=== PATIENT | male | born 1960 | race Caucasian/White ===

== ENCOUNTER → 2020-02-27 | Outpatient (CLI) | payer OTHER ==
[2017-05-11 11:00] VITALS: BP 139/93
[~2020-02-27] MED LIST: OMEP20TA63 PO; PRAV40TA2 PO; PROP40TA PO; TRAM50TA PO
--- NOTE | 2020-02-27 13:46 | RAD ---
Examination: Right Lower Extremity Venous Doppler Ultrasound History: Right lower extent pain, swelling Comparison: None Procedure: Mckeon scale, color flow 2D and spectal waveform analysis images are obtained with and without compression in the area of the common femoral vein, superficial femoral vein - femoral vein junction, main femoral vein (superficial femoral vein) and popliteal vein. Veins of the proximal calf are also imaged. Findings: There is normal duplex flow, color flow and compressibility of all visualized vein segments. No evidence of deep venous thrombus is present. Impression: No evidence of DVT in the right lower extremity venous system. Electronically signed by: Nelson Corbin MD (02/27/2020 1:43 PM) [id number]
== END | disposition home or self-care (01) ==
LOC: US 13:00
PROVIDERS: ATTEND Nurse Practitioner Family
DX: R22.41 Localized swelling, mass and lump, right lower limb (principal)
CPT/HCPCS: 93971

== ENCOUNTER → 2021-01-01 | Outpatient (CLI) | payer OTHER ==
[2017-05-11 11:00] VITALS: BP 139/93
[~2021-01-01] MED LIST changes: +ACET325T9 PO; +CARV40CP5 PO; +IBUP-1581 PO; +MELO7.5T29 PO; +PREG100C PO; +TAMS0.4C97 PO
--- NOTE | 2021-01-01 15:43 | PDOC1 ---
INITIAL PAIN CONSULT DATE OF SERVICE: DOS: DATE: 01/01/21 TIME: 15:34 CHIEF COMPLAINT: Chief Complaint: Low back and left greater than right lower extremity pain HISTORY OF PRESENT ILLNESS: 60-year-old male presents history of pain low back bilateral lower extremities left greater than right for about 6 months not the result of any specific injury or accident that he is aware of is been getting worse over time as patient is very physical job. Patient reports that the pain is in the low back across the low back bilaterally rating to the lower extremities left greater than right posterior gluteus posterior lateral thigh anterior thigh medial thigh medial lower leg and into the calves as well as the feet patient reports is constant times intermittent intensity but was present changes during the day with activity worse with walking standing changing positions better with sitting or laying down or standing still becomes most noticeably painful. Patient reports is tingling and numbness in the legs radiating pain in the lower extremities bu rning and cramping in the back as well as the legs. Patient reports it wakes him sleep only very rarely feels much better laying down does not affect his bowel bladder control or his ability to walk significantly. Patient reports he is taking tramadol as well as meloxicam and pregabalin all of which do decrease the pain by only about 40 to 50%. Patient has been doing physical therapy exercises that his primary care physician gave him stretching strengthening of the low back and legs twice daily or 3 times daily when he has time but is not been decreasing the pain significantly. Patient did have MRI scan of the lumbar spine showing multilevel degenerative changes most pronounced at L4-5 with diffuse bulging annulus and central canal measuring 6 mm in diameter bilateral foraminal stenosis more prominent on the left. Patient reports no loss of motor function no bowel or bladder incontinence but significant fatigability of the left lower extremity with extended standing. PAST MEDICAL HISTORY: PMH: Arthritis, gastroesophageal reflux, hypertension PREVIOUS SURGERIES: Past Surgical Hx: Hemorrhoidectomy CURRENT MEDICATIONS: Current Meds: Active Scripts Medications Dose Route/Sig Max Daily Dose Days Date Category Carvedilol ER (Carvedilol Phosphate) 40 Mg Cpmp.24hr 20 Mg PO DAILY 01/01/21 Reported Flomax (Tamsulosin Hcl) 0.4 Mg Cap.er.24h 1 Cap PO DAILY 01/01/21 Reported Meloxicam 7.5 Mg Tablet 1 Tab PO DAILY 30 01/01/21 Reported Lyrica (Pregabalin) 100 Mg Capsule 1 Cap PO BID 01/01/21 Reported Tylenol (Acetaminophen) 325 Mg Tablet 1-2 Tab PO QID 01/01/21 Reported Motrin Ib (Ibuprofen) 200 Mg Capsule 200 Mg PO Q4-6HRS PRN 01/01/21 Reported Tramadol Hcl 50 Mg Tablet 50 Mg PO Q6H PRN 05/10/17 Reported Pravastatin Sodium 40 Mg Tablet 1 Tab PO QHS 05/10/17 Reported ALLERGIES; Allergies: Coded Allergies: No Known Drug Allergies (Unverified , 05/10/17) FAMILY HISTORY: Family Hx: Unknown SOCIAL HISTORY: Social Hx: Patient is nondrug alcohol quit smoking 20 years ago does not use any illegal illicit or recreational drugs is lives with his spouse lives locally in [facility] and owns a local tire store. REVIEW OF SYSTEMS: ROS: Positive for those items mentioned in history of present illness, all systems are reviewed, otherwise negative ,and are complete full and well-documented on patient's chart. PHYSICAL EXAM: VS: Blood pressure is 154/94 pulse 74 respirations 16 temperature is 98.3 F height is 5 feet 11 inches weight is 301 pound PE: PHYSICAL EXAMINATION: GENERAL: The patient is awake, alert, oriented, appropriate, very pleasant in demeanor HEENT: Shows normocephalic, atraumatic. Extraocular movements are intact and symmetrical. Oral cavity: Mucous membranes moist and pink. Dentition is intact. NECK: Shows anterior throat supple without palpable lymphadenopathy noted. Swallow reflex symmetrical. CHEST: Shows normal on inspection. Breath sounds are clear bilaterally, distant but no rales or rhonchi. HEART: Shows S1, S2 clear. No murmurs auscultated. ABDOMEN: Soft, nontender, nondistended. No palpable organomegaly is noted. BACK: Shows spine grossly in the midline. Normal-appearing cervical lordotic curvature. There is mildly increased thoracic kyphosis, some flattening of the lumbar lordotic curvature. Lumbar paraspinous muscles show symmetrical on ins pection, on palpation shows some moderate tenderness diffusely throughout the upper, middle and lower distribution of the paraspinous muscles bilaterally and also into the lower thoracic paraspinous musculature, firm and tender, but without specific trigger points, without radiation of pain. The patient has good rotational motion of the lumbar spine, both laterally as well as extension and flexion without significant difficulty. EXTREMITIES: Lower extremities show deep tendon reflexes 2+ in the patellar and tendo calcaneus tendons. Motor exam is 5 on a scale of 5 with right dorsiflexion, extension, quadriceps and hamstring flexion and 4/5 on the left. Peripheral pulses are 1+ posterior tibial. No peripheral edema is noted bilaterally. Lower extremities are warm and dry to touch, equal in color and appearance. Straight leg raise noted to be positive on the left approximately 4 0 degrees decreased with knee flexion, right side is negative. Gaenslen's and Carlo's maneuvers are negative bilaterally as well. The patient is able to stand, stand on his toes without significant difficulty or loss of balance walks with a normal-appearing gait is noted, does not use any assistive devices to ambulate. SKIN: Shows warm and dry, good turgor. No edema. No sores, rashes or bruising throughout. IMPRESSION: Impression: 60-year-old male with proximate 6-month history low back bilateral lower extremity pain left greater than right in a radicular fashion following L4-5 dermatomal distribution. MRI scan lumbar spine as noted Arthritis Hypertension Plan: Options were discussed with the patient including conservative medical management, continued physical therapies, interventional techniques, he would like to pursue interventional techniques. We discussed a lumbar epidural steroid injection using description as well as anatomical models to describe the procedure. Patient will wait for preauthorization with insurance provider once obtained we will have him return for translaminar approach L4-5 level lumbar epidural steroid injection at that time. In the meantime patient continue with stretching strength exercises as currently also oral analgesics and pain medication as currently as well. ENRIQUE TORRES MD Jan 01, 2021 15:43
== END | disposition home or self-care (01) ==
LOC: PNCL 08:17
PROVIDERS: ATTEND Anesthesiology
DX: M54.5 Low back pain (principal); M79.604 Pain in right leg; M19.90 Unspecified osteoarthritis, unspecified site; K21.9 Gastro-esophageal reflux disease without esophagitis; E78.00 Pure hypercholesterolemia, unspecified; I10 Essential (primary) hypertension; Z79.899 Other long term (current) drug therapy; Z98.890 Other specified postprocedural states; Z87.891 Personal history of nicotine dependence
CPT/HCPCS: 99214; G0463

== ENCOUNTER → 2021-01-25 | Outpatient (CLI) | payer OTHER ==
[2017-05-11 11:00] VITALS: BP 139/93
[~2021-01-25] MED LIST changes: +IOHEXOL 180 MG/ML 10 ML VIAL. ONE; +methylPREDNISolone ACETATE 40 MG/ML VIAL. ONE; +methylPREDNISolone ACETATE 80 MG/ML VIAL. ONE
--- NOTE | 2021-01-25 10:19 | PDOC ---
Progress Note - Pain Clinic Date of Service: DOS: DATE: 01/25/21 TIME: 10:17 Diagnosis: Dx: Lumbar radiculopathy with lumbar degenerative disease and lumbar spinal stenosis History or Present Illness: HPI: 60-year-old male returns to follow-up status post initial evaluation preauthorization for lumbar epidural steroid injection. Patient reports that he is still having pain in the low back and left lower extremity but now also some on the right side which is a new finding initially did not have any pain on the right side but now is in the right posterior gluteus and lateral thigh as well only occasionally not every day patient which is left-sided still there daily worse with walking standing changing positions in the posterior gluteus lateral thigh anterior thigh medial thigh posterior calf to some extent as well with walking and standing patient reports tingling burning cramping can be constant with activity. Patient ports better at night generally does not awaken from sleep. Patient reports no new motor or sensory deficits no new bowel or bladder. Patient rates his pain as 8 on scale 10 is worse over the past week 7 on average 6 its least is a 7 today. Patient also has new change in medication is increase his Tylenol to 650 mg instead of 325 and reports this does help b lizabeth than the smaller dose. Physical Exam: VS: Blood pressure is 189/108 pulse 68 respirations 18 temperature 98.6 F height 5 feet 11 inches weight is 299 pounds PE: PHYSICAL EXAMINATION: GENERAL: The patient is awake, alert, oriented, appropriate, very pleasant in demeanor. HEENT: Shows normocephalic, atraumatic. Extraocular movements are intact and symmetrical. NECK: Shows anterior throat supple without palpable lymphadenopathy noted. Swallow reflex symmetrical. CHEST: Shows normal on inspection. Breath sounds are clear bilaterally. HEART: Shows S1, S2 clear. No murmurs auscultated. ABDOMEN: Soft, nontender, nondistended. No palpable organomegaly is noted. No rebound or guarding demonstrated. BACK: Shows spine grossly in the midline. Normal-appearing cervical lordotic curvature. There is slightly increased thoracic kyphosis, some minor flattening of the lumbar lordotic curvature. Lumbar paraspinous muscles show symmetrical on inspection, on palpation shows some moderate tenderness diffusely throughout the upper, middle and lower distribution of the paraspinous muscles without specific trigger points, without radiation of pain. The patient has good rotational motion of the lumbar spine, both laterally as well as extension and flexion without significant difficulty. No tenderness over the spinous processes, sacrum or sacroiliac regions. EXTREMITIES: Lower extremities show deep tendon reflexes 2+ in the patellar and tendo calcaneus tendons. Motor exam is 5 on a scale of 5 with right dorsiflexion, extension, quadriceps and hamstring flexion and 4/5 on the left. Peripheral pulses are 1+ posterior tibial. No peripheral edema is noted bilaterally. Lower extremities are warm and dry to touch, equal in color and appearance. SKIN: Shows warm and dry, good turgor. No edema. No sores, rashes or bruising throughout. Procedure: Procedure: Options discussed with patient. Patient chart reviewed his current medication regimen updated current review of systems updated today as well. We will proceed with a lumbar epidural steroid injection today with fluoroscopic guidance. Risks were discussed including but not limited to: Bleeding, infection, possibility of epidural hematoma and subsequent neurological compromise, dural puncture, headaches, spinal cord and/or nerve damage, side effects of steroid medication, and poor results regarding pain control. Patient understands and wished to proceed. Patient return to clinic in approximately 2 weeks for follow-up, was counseled as to return appointment activity level and side effects to be aware of. Medication Injected: Med Injected: Procedure is lumbar epidural steroid injection under local anesthetic using sterile prep and drape at the L4-5 level using C-arm fluoroscopic guidance in both AP and lateral views medications injected is 120 mg Depo-Medrol +10mL preservative-free normal saline and 2 mL contrast- condition at discharge is stable patient tolerated procedure well had no complications. Condition at Discharge: Condition at Discharge: Condition at discharge stable, patient already sees well and had no complications. ENRIQUE TORRES MD Jan 25, 2021 10:19
--- NOTE | 2021-01-25 10:20 | PDOC4 ---
Procedure Note: Procedure Note: Patient was consented for lumbar epidural steroid injection. Risks were discussed including but not limited to: Bleeding, infection, possibility of epidural hematoma and subsequent neurological compromise, dural puncture, headaches, spinal cord and/or nerve damage, side effects of steroid medication, and poor results regarding pain control. Patient understands and wished to proceed. Procedure is lumbar epidural steroid injection under local anesthetic using sterile prep and drape at the L4-5 level using C-arm fluoroscopic guidance in both AP and lateral views medications injected is 120 mg Depo-Medrol +10mL preservative-free normal saline and 2 mL contrast- condition at discharge is stable patient tolerated procedure well had no complications. ENRIQUE TORRES MD Jan 25, 2021 10:20
== END | disposition home or self-care (01) ==
LOC: PNCL 09:23
PROVIDERS: ATTEND Anesthesiology
DX: M51.16 Intervertebral disc disorders with radiculopathy, lumbar region (principal); M48.061 Spinal stenosis, lumbar region without neurogenic claudication; I10 Essential (primary) hypertension; E78.00 Pure hypercholesterolemia, unspecified; K21.9 Gastro-esophageal reflux disease without esophagitis; M19.90 Unspecified osteoarthritis, unspecified site; Z87.891 Personal history of nicotine dependence; Z79.899 Other long term (current) drug therapy; Z98.890 Other specified postprocedural states
CPT/HCPCS: 62323; J1030; J1040; Q9965

== ENCOUNTER → 2021-02-08 | Outpatient (CLI) | payer OTHER ==
[2017-05-11 11:00] VITALS: BP 139/93
[~2021-02-08] MED LIST changes: -IOHEXOL 180 MG/ML 10 ML VIAL. ONE; -methylPREDNISolone ACETATE 40 MG/ML VIAL. ONE; -methylPREDNISolone ACETATE 80 MG/ML VIAL. ONE
--- NOTE | 2021-02-08 09:30 | PDOC ---
Progress Note - Pain Clinic Date of Service: DOS: DATE: 02/08/21 TIME: 09:25 Diagnosis: Dx: Lumbar radiculopathy with lumbar degenerative disease and lumbar spinal stenosis History or Present Illness: HPI: 60-year-old male returns for follow-up status post lumbar epidural steroid injection x1. Patient reports 90% improvement in the pain in his low back and left lower extremity essentially resolved but still has some numbness and tingling in his feet. Patient reports is been increase his activity with greater ease and comfort walking greater distances travel with greater ease performing work duties with greater ease and comfort household activities as well as sleeping better at night. Patient reports the numbness in the feet though is becoming somewhat more noticeable and involves both feet, more noticeable than it was prior to the injection. Patient reports no new bowel or bladder incontinence. Physical Exam: VS: Blood pressure is 164/96 pulse 67 respirations 18 temperature 97.9 F height is 5 foot 11 inches weight is 294 pounds PE: PHYSICAL EXAMINATION: GENERAL: The patient is awake, alert, oriented, appropriate, very pleasant in demeanor. HEENT: Shows normocephalic, atraumatic. Extraocular movements are intact and sy mmetrical. Oral cavity: Mucous membranes moist and pink. Dentition is intact. NECK: Shows anterior throat supple without palpable lymphadenopathy noted. Swallow reflex symmetrical. CHEST: Shows normal on inspection. Breath sounds are clear bilaterally, distant but no rales or rhonchi auscultated. HEART: Shows S1, S2 clear. No murmurs auscultated. ABDOMEN: Soft, nontender, nondistended, obese. No palpable organomegaly is noted. BACK: Shows spine grossly in the midline. Normal-appearing cervical lordotic curvature. There is slightly increased thoracic kyphosis, some minor flattening of the lumbar lordotic curvature. Lumbar paraspinous muscles show symmetrical on inspection, on palpation shows some moderate tenderness diffusely throughout the upper, middle and lower distribution of the paraspinous muscles without specific trigger points, without radiation of pain. The patient has good rotational motion of the lumbar spine, both laterally as well as extension and flexion without significant difficulty. No tenderness over the spinous processes, sacrum or sacroiliac regions. EXTREMITIES: Lower extremities show deep tendon reflexes 2+ in the patellar and tendo calcaneus tendons. Motor exam is 5 on a scale of 5 with right dorsiflexion, extension, quadriceps and hamstring flexion and 4/5 on the left. Peripheral pulses are 1+ posterior tibial. No peripheral edema is noted bilaterally. Lower extremities are warm and dry. SKIN: Shows warm and dry, good turgor. No edema. No sores, rashes or bruising throughout. Procedure: Procedure: Options discussed with patient. Patient chart was reviewed his current medication regimen updated current review of systems updated today as well. We will preauthorize patient for a second lumbar epidural steroid injections as he is doing very well after the first injection, but with persistent radicular pain and increasing numbness in the bilateral feet with standing and walking. Once approved, patient will return for translaminar approach L4-5 level lumbar epidural steroid injection. Patient continue with stretching strengthening exercises as currently as well as Tylenol and meloxicam and tramadol as needed. Medication Injected: Med Injected: None Condition at Discharge: Condition at Discharge: Condition at discharge is stable. ENRIQUE TORRES MD Feb 08, 2021 09:30
== END | disposition home or self-care (01) ==
LOC: PNCL 09:06
PROVIDERS: ATTEND Anesthesiology
DX: M51.16 Intervertebral disc disorders with radiculopathy, lumbar region (principal); M48.061 Spinal stenosis, lumbar region without neurogenic claudication; I10 Essential (primary) hypertension; E78.00 Pure hypercholesterolemia, unspecified; K21.9 Gastro-esophageal reflux disease without esophagitis; M19.90 Unspecified osteoarthritis, unspecified site; Z87.891 Personal history of nicotine dependence; Z79.899 Other long term (current) drug therapy
CPT/HCPCS: 99212; G0463

== ENCOUNTER → 2021-07-22 | Outpatient (CLI) | payer OTHER ==
[2017-05-11 11:00] VITALS: BP 139/93
[~2021-07-22] MED LIST changes: +IBUP200T44 PO; +IOHEXOL 180 MG/ML 10 ML VIAL. ONE; +methylPREDNISolone ACETATE 40 MG/ML VIAL. ONE; +methylPREDNISolone ACETATE 80 MG/ML VIAL. ONE
--- NOTE | 2021-07-22 10:09 | PDOC4 ---
Procedure Note: ICD 10 Code: ICD 10 Code: M54.16 M51.36 M48.06 Procedure Note: Patient was consented for lumbar epidural steroid injection with fluoroscopic guidance. Risks were discussed including but not limited to: Bleeding, infection, possibility of epidural hematoma and subsequent neurological compromise, dural puncture, headaches, spinal cord and/or nerve damage, side effects of steroid medication, and poor results regarding pain control. Patient understands and wished to proceed. Procedure is lumbar epidural steroid injection under local anesthetic using ster ile prep and drape at the L4-5 level using C-arm fluoroscopic guidance in both AP and lateral views medications injected is 120 mg Depo-Medrol +10mL preservative-free normal saline and 2 mL contrast- condition at discharge is stable patient tolerated procedure well had no complications. ENRIQUE TORRES MD Jul 22, 2021 10:09
--- NOTE | 2021-07-22 10:09 | PDOC ---
Progress Note - Pain Clinic Date of Service: DOS: DATE: 07/22/21 TIME: 10:00 Diagnosis: Dx: Lumbar radiculopathy with lumbar degenerative disease and lumbar spinal stenosis History or Present Illness: HPI: 60-year-old male returns for follow-up last seen January 25, 2021 patient had about 75% improvement after his injection and reports the pain returning now over the past 2 months or so not the result of any specific injury or accident that he is aware of but did very well for most of the summer and into the fall through the winter is now returning in the low back and the left greater than right lower extremity. Patient reports still some pain on both sides but much worse on the left with walking standing change positions patient also has new finding of partial foot drop on the left side which she has reports present for about 1 month. Patient reports increased weakness in the left leg as well with walking standing changing positions better with sitting or laying down generally does not awaken her from sleep at night and is usually better with sitting patient reports initially doing much better with walking doing household activities work activities greater ease and comfort and sleeping better as well. Now, more weakness noticed in the left lower extremity with standing and walking and also dragging his left foot is noted. Patient reports no bowel or bladder incontinence. Patient also has significant elevation of blood pressure today we discussed this with him in great detail 175/111 rechecked 162/108. We discussed that pain can increase blood pressure as well but patient has not any significant acute pain while the measurements were taken today. Patient is on antihypertensive medication and will discuss this with his primary care physician Physical Exam: VS: Blood pressure is 175/111 pulse 77 respirations 18 temperature 99.2 F height is 5 feet 11 inches weight is 285 pounds. PE: PHYSICAL EXAMINATION: GENERAL: The patient is awake, alert, oriented, appropriate, very pleasant in demeanor HEENT: Shows normocephalic, atraumatic. Extraocular movements are intact and symmetrical. Oral cavity: Mucous membranes moist and pink. Dentition is intact. NECK: Shows anterior throat supple without palpable lymphadenopathy noted. S wallow reflex symmetrical. CHEST: Shows normal on inspection. Breath sounds are clear bilaterally, distant but no rales or rhonchi. HEART: Shows S1, S2 clear. No murmurs auscultated. ABDOMEN: Soft, nontender, nondistended. No palpable organomegaly is noted. BACK: Shows spine grossly in the midline. Normal-appearing cervical lordotic curvature. There is slightly increased thoracic kyphosis, some minor flattening of the lumbar lordotic curvature. Lumbar paraspinous muscles show symmetrical on inspection, on palpation shows some moderate tenderness diffusely throughout the upper, middle and lower distribution of the paraspinous muscles without specific trigger points, without radiation of pain. The patient has good rotational motion of the lumbar spine, both laterally as well as extension and flexion without significant difficulty. No tenderness over the spinous processes, sacrum or sacroiliac regions. EXTREMITIES: Lower extremities show deep tendon reflexes 2+ in the patellar and tendo calcaneus tendons. Motor exam is 5 on a scale of 5 with right dorsiflexion, extension, quadriceps and hamstring flexion and 4/5 on the left, with 3 out of 5 dorsiflexion and extension, and foot drop on the left only. Peripheral pulses are 1+ posterior tibial. No peripheral edema is noted bilaterally. Lower extremities are warm and dry to touch, equal in color and appearance. SKIN: Shows warm and dry, good turgor. No edema. No sores, rashes or bruising throughout. Procedure: Procedure: Options were discussed with the patient. Patient chart reviews his current medication regimen updated current review of systems updated today as well. We will proceed with a lumbar epidural steroid injection today with fluoroscopic guidance. Risks were discussed including but not limited to: Bleeding, infection, possibility of epidural hematoma and subsequent neurological comp romise, dural puncture, headaches, spinal cord and/or nerve damage, side effects of steroid medication, and poor results regarding pain control. Patient understands and wished to proceed. Patient will return to clinic in approximate 2 weeks for follow-up, was counseled as to return appointment, active level, and side effect to be aware of. Medication Injected: Med Injected: Procedure is lumbar epidural steroid injection under local anesthetic using sterile prep and drape at the L4-5 level using C-arm fluoroscopic guidance in both AP and lateral views medications injected is 120 mg Depo-Medrol +10mL preservative-free normal saline and 2 mL contrast- condition at discharge is stable patient tolerated procedure well had no complications. Condition at Discharge: Condition at Discharge: Condition at discharge stable, patient tolerated procedure well and had no complications. ENRIQUE TORRES MD Jul 22, 2021 10:09
== END | disposition home or self-care (01) ==
LOC: PNCL 09:17
PROVIDERS: ATTEND Anesthesiology
DX: M51.16 Intervertebral disc disorders with radiculopathy, lumbar region (principal); M48.061 Spinal stenosis, lumbar region without neurogenic claudication; I10 Essential (primary) hypertension; E78.00 Pure hypercholesterolemia, unspecified; K21.9 Gastro-esophageal reflux disease without esophagitis; M19.90 Unspecified osteoarthritis, unspecified site; Z87.891 Personal history of nicotine dependence; Z79.899 Other long term (current) drug therapy
CPT/HCPCS: 62323; J1030; J1040; Q9965